=== PATIENT | male | born 1985 | race Caucasian/White ===

== ENCOUNTER 2016-11-13 18:53 | Emergency (ER) | payer OTHER ==
[2016-11-13 20:21] LABS: HEMOGLOBIN 15.8 gm/dl (14.0-17.5); RED BLOOD COUNT 5.32 M/UL (4.20-5.50); WHITE BLOOD COUNT 16.8 K/UL (4.5-11.0)
[2016-11-13 20:39] LABS: BUN/CREATININE RATIO 11 (0-10)
== END 2016-11-13 23:35 | disposition home or self-care (01) ==
LOC: ER1 18:53
PROVIDERS: Family Medicine
DX: K59.00 Constipation, unspecified (principal); F17.210 Nicotine dependence, cigarettes, uncomplicated; Z90.89 Acquired absence of other organs
CPT/HCPCS: 36415; 80053; 81001; 82150; 83690; 85025; 96361; 96374; 96375; 99284; J1885; J2550; J7050; Q9962

== ENCOUNTER 2017-04-30 04:11 | Emergency (ER) | payer OTHER ==
[2017-04-30 05:50] LABS: HEMOGLOBIN 13.1 gm/dl (14.0-17.5); RED BLOOD COUNT 4.43 M/UL (4.20-5.50); WHITE BLOOD COUNT 20.7 K/UL (4.5-11.0)
[2017-04-30 06:08] LABS: BUN/CREATININE RATIO 19 (0-10)
== END 2017-04-30 10:50 ==
LOC: ER1 04:11
PROVIDERS: Physician Assistant Medical
DX: K85.90 Acute pancreatitis without necrosis or infection, unspecified (principal); K86.3 Pseudocyst of pancreas; F17.210 Nicotine dependence, cigarettes, uncomplicated
CPT/HCPCS: 36415; 80053; 81001; 82150; 83605; 83690; 85025; 86140; 87086; 96374; 96375; 96376; 99285; J2270; J2405; J7050; Q9962